=== PATIENT | female | born 1970 | race African-American/Black ===

== ENCOUNTER 2021-07-01 22:14 | Inpatient (IN) | payer MEDICAID ==
[~2021-07-01] VITALS: Ht 160 cm; Wt 105.5 kg
[2021-07-01 23:36] LABS: Basophils # (auto) 0.1 10 ^3/uL (0-0.2); Hemoglobin 10.5 g/dL (12.2-16.2); Nucleated Red Blood Cells % 0.1 %
[2021-07-01 23:37] LABS: Basophils % (auto) 0.8 % (0.0-2.0); Eosinophils # (auto) 0.4 10 ^3/uL (0-0.8); Eosinophils % (auto) 2.9 % (0.0-7.0); Hematocrit 33.1 % (36.0-46.0); Lymphocytes # (auto) 2.7 10 ^3/uL (0.4-5.4); Lymphocytes % (auto) 18.7 % (10.0-50.0); Mean Corpuscular Hemoglobin 25.9 pg (28.0-32.0); Mean Corpuscular Hgb Conc. 31.8 g/dL (32.0-36.0); Mean Corpuscular Volume 81.5 fL (80.0-100.0); Monocytes % (auto) 6.7 % (0.0-12.0); Neutrophils # (auto) 10.2 10 ^3/uL (1.6-8.6); Neutrophils % (auto) 70.9 % (37.0-80.0); Red Blood Cells 4.06 10^6/uL (4.0-5.20); White Blood Cell 14.3 10^3/uL (4.4-10.8)
[2021-07-01 23:54] LABS: INR 1.06 (0.9-1.15); Partial Thromboplastin Time 27.3 sec (23.6-33.0)
[2021-07-02 00:06] LABS: Albumin 2.4 g/dL (3.4-5.0); BUN/Creatinine Ratio 8.1; Calcium 9.2 mg/dL (8.5-10.1)
[2021-07-02 00:09] LABS: Bilirubin, Total 0.1 mg/dL (0.2-1.0); Total Protein 9.6 g/dL (6.4-8.2)
[2021-07-02 00:29] LABS: Urine Bacteria FEW /hpf (None Seen); Urine Blood TRACE /uL (Negative); Urine Mucus FEW (None Seen); Urine Specific Gravity 1.034 (1.001-1.035); Urine WBC 14 /hpf (0 - 5)
[2021-07-02] MEDS ORDERED: ONDANSETRON HCL 4 MG/2 ML VIAL IV PRN ×3 (04:00→16:30)
[2021-07-02] MEDS ORDERED: MORPHINE SULFATE 4 MG/ML SYR/VIAL IV PRN ×2 (04:00→14:30)
[2021-07-02] MEDS ORDERED: SODIUM CHLORIDE 0.9% 1,000 ML IV SCH (04:00)
[2021-07-02] MEDS ORDERED: CLINDAMYCIN 600MG IV 50 ML IV SCH (06:00)
[2021-07-02] MEDS ORDERED: SUCCINYLCHOLINE CHLORIDE 20 MG/ML 10ML VIAL IV ONE (13:53)
[2021-07-02] MEDS ORDERED: MEPERIDINE HCL (50 MG/ML) 1 ML VIAL ONE (13:54)
[2021-07-02] MEDS ORDERED: MIDAZOLAM HCL 2MG/2ML 2ml VIAL (1mg/ml) ONE (13:54)
[2021-07-02] MEDS ORDERED: fentaNYL CITRATE 100 MCG/2 ML VL ONE ×3 (13:54→15:22)
[2021-07-02] MEDS ORDERED: DexAMETHasone SOD PHOS 10MG/1ML VIAL INJ ONE (13:56)
[2021-07-02] MEDS ORDERED: VANCOMYCIN HCL 1000 MG VL ONE (14:01)
[2021-07-02] MEDS: VANCOMYCIN HCL 1000 MG VL ONE ×4 (14:04→16:15)
[2021-07-02] MEDS ORDERED: TOBRAMYCIN INJ 80 MG in D5W 5% 100 ML IV ONE (14:15)
[2021-07-02] MEDS ORDERED: PROPOFOL 10 MG/ML 20 ML IV ONE (14:17)
[2021-07-02] MEDS: TOBRAMYCIN SULFATE 40 MG/ML 2ML VIAL IV ONE ×2 (14:30→16:15)
[2021-07-02] MEDS ORDERED: MIDAZOLAM HCL 2MG/2ML 2ml VIAL (1mg/ml) IV PRN (14:30)
[2021-07-02] MEDS ORDERED: HYDROmorphone HCL 2 MG/ML VL IV PRN ×2 (14:30→16:30)
[2021-07-02] MEDS ORDERED: hydrALAZINE HCL 20 MG/ML VL IV PRN (14:30)
[2021-07-02] MEDS ORDERED: ePHEDrine SULFATE 50 MG/ML AMP IV PRN (14:30)
[2021-07-02] MEDS ORDERED: LABETALOL HCL 5 MG/ML 4ML SYRINGE IV PRN (14:30)
[2021-07-02] MEDS ORDERED: HYDROmorphone HCL 2 MG/ML VL ONE (14:51)
[2021-07-02] MEDS ORDERED: NALOXONE HCL 0.4 MG/ML VIAL ONE (15:29)
[2021-07-02] MEDS ORDERED: VANCOMYCIN PER PHARMACY 0 MG IV SCH (16:30)
[2021-07-02 17:00] VITALS: BP 140/72
[2021-07-02] MEDS: VANCOMYCIN 1GM/250ML 250 ML IV SCH (18:33)
[2021-07-02] MEDS: LACTATED RINGER'S 1,000 ML IV SCH (18:33)
[2021-07-02] MEDS: SODIUM CHLOR 0.9% PF (SALINE LOCK) 10ML VIAL/SYR IV SCH (21:33)
[2021-07-02] MEDS: DOXYCYCLINE 100 MG TAB/CAP PO SCH (21:33)
[2021-07-02 22:00] VITALS: BP 138/80
[2021-07-03] MEDS: LACTATED RINGER'S 1,000 ML IV SCH (02:08)
[2021-07-03 05:00] VITALS: BP 141/79
[2021-07-03 06:28] LABS: Basophils # (auto) 0.1 10 ^3/uL (0-0.2); Eosinophils # (auto) 0.1 10 ^3/uL (0-0.8); Eosinophils % (auto) 0.7 % (0.0-7.0); Monocytes # (auto) 0.5 10 ^3/uL (0-1.3)
[2021-07-03 06:31] LABS: Basophils % (auto) 0.4 % (0.0-2.0); Hematocrit 25.1 % (36.0-46.0); Lymphocytes % (auto) 6.4 % (10.0-50.0); Mean Corpuscular Hemoglobin 25.8 pg (28.0-32.0); Mean Corpuscular Volume 80.7 fL (80.0-100.0); Monocytes % (auto) 3.2 % (0.0-12.0); Neutrophils % (auto) 89.3 % (37.0-80.0); Red Blood Cells 3.11 10^6/uL (4.0-5.20); Red Cell Distribution Width 15.9 % (11.8-14.3); White Blood Cell 15.7 10^3/uL (4.4-10.8)
[2021-07-03] MEDS: SODIUM CHLOR 0.9% PF (SALINE LOCK) 10ML VIAL/SYR IV SCH (06:40)
[2021-07-03] MEDS: VANCOMYCIN 1GM/250ML 250 ML IV SCH ×2 (06:40→17:48)
[2021-07-03 06:55] LABS: Potassium 4.6 mmol/L (3.5-5.1)
[2021-07-03] MEDS ORDERED: HYDR25TA4 PO (07:07)
[2021-07-03] MEDS ORDERED: BENA20TA14 PO (07:07)
[2021-07-03 07:12] LABS: BUN/Creatinine Ratio 12.8; Bilirubin, Total 0.2 mg/dL (0.2-1.0); Calcium 9.1 mg/dL (8.5-10.1); Total Protein 8.3 g/dL (6.4-8.2)
[2021-07-03 09:00] VITALS: BP 118/69
[2021-07-03] MEDS ORDERED: ENOXAPARIN SOD 40 MG/0.4 ML SYRINGE SC SCH (10:00)
[2021-07-03] MEDS: DOXYCYCLINE 100 MG TAB/CAP PO SCH (10:02)
[2021-07-03 13:00] VITALS: BP 122/71
[2021-07-03] MEDS ORDERED: LIDOCAINE 1% (LOCAL ANESTH.) PF 5ml SDV ID ONE (15:15)
[2021-07-03] MEDS ORDERED: levoFLOXacin 500MG 100 ML IV ONE (15:30)
[2021-07-03] MEDS ORDERED: SULF400T11 PO (15:33)
[2021-07-03] MEDS ORDERED: NALO4SPR2 (15:49)
[2021-07-03] MEDS ORDERED: HYDR-4798 PO (15:49)
[2021-07-03 17:00] VITALS: BP 105/68
[2021-07-03 18:18] VITALS: BP 105/68
[2021-07-03] MEDS ORDERED: SODIUM CHLOR 0.9% PF (SALINE LOCK) 10ML VIAL/SYR IV SCH (22:00)
[2021-07-19] MEDS ORDERED: BENA10TA9 PO (14:15)
== END 2021-07-03 19:15 | disposition home health service (06) | DRG 326 ==
LOC: ER 22:14 → OVERFLOW 07-02 03:49 → CENTRAL 07-02 17:10
PROVIDERS: ADMIT Nurse Practitioner; ATTEND Hospitalist
PROC: 0SUW09Z Supplement Left Knee Joint, Tibial Surface with Liner, Open Approach (ICD-10-PCS; 2021-07-02)
PROC: 3E0U029 Introduction of Other Anti-infective into Joints, Open Approach (ICD-10-PCS; 2021-07-02)
PROC: 0SBD0ZZ Excision of Left Knee Joint, Open Approach (ICD-10-PCS; 2021-07-02)
PROC: 0SPD09Z Removal of Liner from Left Knee Joint, Open Approach (ICD-10-PCS; principal; 2021-07-02 14:20)
PROC: 02HV33Z Insertion of Infusion Device into Superior Vena Cava, Percutaneous Approach (ICD-10-PCS; 2021-07-03)
DX: M25.462 Effusion, left knee (principal); E44.0 Moderate protein-calorie malnutrition; L02.416 Cutaneous abscess of left lower limb; E66.01 Morbid (severe) obesity due to excess calories; D72.829 Elevated white blood cell count, unspecified; Z20.822 Contact with and (suspected) exposure to COVID-19; Z96.653 Presence of artificial knee joint, bilateral; Z68.41 Body mass index [BMI] 40.0-44.9, adult; Z88.0 Allergy status to penicillin; I10 Essential (primary) hypertension
CPT/HCPCS: 36415; 36569; 71045; 73700; 80053; 81001; 84702; 85025; 85610; 85730; 87040; 87070; 87075; 87205; 87426; 96365; 96375; G0378; J0330; J1100; J1956; J2250; J2405; J2704; J3490

== ENCOUNTER 2021-07-18 13:15 | Inpatient (IN) | payer MEDICAID ==
[~2021-07-18] VITALS: Ht 160 cm; Wt 101.7 kg
[~2021-07-18 13:15] MED LIST: BENA20TA14 PO; HYDR-4798 PO; HYDR25TA4 PO; NALO4SPR2; SULF400T11 PO
[2021-07-18 13:52] LABS: Basophils # (auto) 0.1 10 ^3/uL (0-0.2); Eosinophils # (auto) 0.2 10 ^3/uL (0-0.8); Monocytes # (auto) 0.7 10 ^3/uL (0-1.3); Neutrophils # (auto) 7.5 10 ^3/uL (1.6-8.6); Nucleated Red Blood Cells % 0.1 %
[2021-07-18 13:53] LABS: Basophils % (auto) 1.1 % (0.0-2.0); Eosinophils % (auto) 2.1 % (0.0-7.0); Hematocrit 31.7 % (36.0-46.0); Hemoglobin 9.9 g/dL (12.2-16.2); Lymphocytes # (auto) 1.4 10 ^3/uL (0.4-5.4); Lymphocytes % (auto) 14.5 % (10.0-50.0); Mean Corpuscular Hemoglobin 25.9 pg (28.0-32.0); Mean Corpuscular Hgb Conc. 31.2 g/dL (32.0-36.0); Mean Corpuscular Volume 83.1 fL (80.0-100.0); Monocytes % (auto) 6.8 % (0.0-12.0); Neutrophils % (auto) 75.5 % (37.0-80.0); Red Blood Cells 3.82 10^6/uL (4.0-5.20); Red Cell Distribution Width 20.1 % (11.8-14.3); White Blood Cell 9.9 10^3/uL (4.4-10.8)
[2021-07-18 14:07] LABS: INR 1.02 (0.9-1.15)
[2021-07-18 14:41] LABS: Urine WBC None Seen /hpf (0 - 5)
[2021-07-18 15:07] LABS: Urine Bacteria NONE SEEN /hpf (None Seen); Urine Blood Negative /uL (Negative); Urine Hyaline Cast MANY /lpf (0 - 2); Urine Mucus FEW (None Seen); Urine Specific Gravity 1.032 (1.001-1.035)
[2021-07-18 15:32] LABS: Alanine Aminotransferase 30 U/L (13-56); Alkaline Phosphatase 74 U/L (45-117); Anion Gap 11 (5-15); Aspartate Aminotransferase 23 U/L (15-37); BUN/Creatinine Ratio 5.6; Bilirubin, Total 0.1 mg/dL (0.2-1.0); Blood Urea Nitrogen 6 mg/dL (7-18); Calcium 8.9 mg/dL (8.5-10.1); Carbon Dioxide 22 mmol/L (21-32); Chloride 108 mmol/L (98-107); GFR African American 70 mL/min; GFR Non-African American 58 mL/min; Glucose 111 mg/dL (74-106); Potassium 3.6 mmol/L (3.5-5.1); Sodium 141 mmol/L (136-145)
[2021-07-18 15:33] LABS: Albumin 2.9 g/dL (3.4-5.0); Total Protein 9.1 g/dL (6.4-8.2)
[2021-07-18] MEDS ORDERED: VANCOMYCIN PER PHARMACY 0 MG IV SCH (18:30)
[2021-07-18] MEDS ORDERED: NITROGLYCERIN 0.4 MG SL TAB SL PRN (18:30)
[2021-07-18] MEDS ORDERED: MORPHINE SULFATE INJECTION 2 MG/ML SYRG IV PRN (18:30)
[2021-07-18] MEDS ORDERED: LABETALOL HCL 5 MG/ML 4ML SYRINGE IV PRN (18:30)
[2021-07-18] MEDS: PANTOPRAZOLE 40 MG/10 ML VIAL INJ IV SCH (18:56)
[2021-07-18] MEDS: ONDANSETRON HCL 4 MG/2 ML VIAL IV PRN (18:58)
[2021-07-18] MEDS: MORPHINE SULFATE INJECTION 2 MG/ML SYRG IV PRN (18:58)
[2021-07-18] MEDS ORDERED: VANCOMYCIN 1GM/250ML 250 ML IV SCH (20:00)
[2021-07-18] MEDS ORDERED: LORazepam 2MG/ML-1ML VIAL IV PRN (22:00)
[2021-07-19] MEDS ORDERED: diphenhdrAMINE HCL 50 MG/1 ML VL IV PRN (00:30)
[2021-07-19 04:34] LABS: Basophils # (auto) 0.1 10 ^3/uL (0-0.2); Basophils % (auto) 1.2 % (0.0-2.0); Eosinophils # (auto) 0.4 10 ^3/uL (0-0.8); Lymphocytes # (auto) 1.9 10 ^3/uL (0.4-5.4); Lymphocytes % (auto) 18.6 % (10.0-50.0); Monocytes # (auto) 0.9 10 ^3/uL (0-1.3); Neutrophils % (auto) 67.4 % (37.0-80.0); White Blood Cell 10.4 10^3/uL (4.4-10.8)
[2021-07-19 04:37] LABS: Eosinophils % (auto) 4.3 % (0.0-7.0); Hematocrit 29.1 % (36.0-46.0); Hemoglobin 9.1 g/dL (12.2-16.2); Mean Corpuscular Hgb Conc. 31.3 g/dL (32.0-36.0); Mean Corpuscular Volume 82.9 fL (80.0-100.0); Monocytes % (auto) 8.5 % (0.0-12.0); Red Blood Cells 3.51 10^6/uL (4.0-5.20); Red Cell Distribution Width 19.6 % (11.8-14.3)
[2021-07-19 04:42] LABS: INR 0.99 (0.9-1.15); Partial Thromboplastin Time 25.8 sec (23.6-33.0)
[2021-07-19 05:08] LABS: Albumin 2.8 g/dL (3.4-5.0); BUN/Creatinine Ratio 10.5; Bilirubin, Total 0.4 mg/dL (0.2-1.0); Calcium 8.8 mg/dL (8.5-10.1)
[2021-07-19] MEDS ORDERED: MIDAZOLAM HCL 2MG/2ML 2ml VIAL (1mg/ml) ONE (07:08)
[2021-07-19] MEDS ORDERED: fentaNYL CITRATE 100 MCG/2 ML VL ONE (07:08)
[2021-07-19] MEDS ORDERED: PROPOFOL 10 MG/ML 20 ML IV ONE (07:09)
[2021-07-19] MEDS ORDERED: CLINDAMYCIN 900MG IV 50 ML IV ONE (07:11)
[2021-07-19] MEDS ORDERED: VANCOMYCIN HCL 1000 MG VL ONE (07:30)
[2021-07-19] MEDS ORDERED: ONDANSETRON HCL 4 MG/2 ML VIAL ONE (07:47)
[2021-07-19] MEDS ORDERED: HYDROmorphone HCL 2 MG/ML VL ONE (08:26)
[2021-07-19] MEDS: HYDROmorphone HCL 2 MG/ML VL IV PRN ×3 (08:28→10:40)
[2021-07-19] MEDS ORDERED: OXYCODONE W/ ACETAMINOPHEN 5/325MG TABLET PO PRN (08:30)
[2021-07-19] MEDS ORDERED: NITROGLYCERIN 0.4 MG SL TAB SL PRN (08:30)
[2021-07-19] MEDS ORDERED: LACTATED RINGER'S 1,000 ML IV SCH (08:30)
[2021-07-19] MEDS ORDERED: METOCLOPRAMIDE HCL 5MG/ml INJ 2ml VIAL IV PRN (08:30)
[2021-07-19] MEDS ORDERED: HYDROmorphone HCL 2 MG/ML VL IV PRN ×2 (08:30→17:00)
[2021-07-19] MEDS ORDERED: MORPHINE SULFATE INJECTION 2 MG/ML SYRG IV PRN (08:30)
[2021-07-19] MEDS ORDERED: VANCOMYCIN PER PHARMACY 0 MG IV SCH (08:30)
[2021-07-19] MEDS: PANTOPRAZOLE 40 MG/10 ML VIAL INJ IV SCH (10:01)
[2021-07-19] MEDS: DOXYCYCLINE 100MG/250ML 250 ML IV SCH ×2 (10:01→19:57)
[2021-07-19] MEDS: SODIUM CHLOR 0.9% PF (SALINE LOCK) 10ML VIAL/SYR IV SCH ×2 (14:01→22:03)
[2021-07-19] MEDS ORDERED: BENA10TA15 PO (14:15)
[2021-07-19] MEDS ORDERED: RIFA300C3 PO (14:15)
[2021-07-19] MEDS ORDERED: LINE1TAB6 PO (14:15)
[2021-07-19] MEDS: MORPHINE SULFATE INJECTION 2 MG/ML SYRG IV PRN (14:33)
[2021-07-19] MEDS: LINEZOLID 600MG/300ML 300 ML IV SCH ×2 (14:33→21:57)
[2021-07-19] MEDS: OXYCODONE W/ ACETAMINOPHEN 5/325MG TABLET PO PRN (16:17)
[2021-07-19 16:33] VITALS: BP 122/66
[2021-07-19] MEDS ORDERED: KETOROLAC TROMETH 30 MG/ML 1ML VIAL IV PRN (17:00)
[2021-07-19] MEDS ORDERED: KETOROLAC TROMETH 30 MG/ML 1ML VIAL IV ONE (17:00)
[2021-07-19 22:00] VITALS: BP 123/48
[2021-07-19] MEDS ORDERED: PATIENTS OWN MEDICATION (zyvox 600 MG) IV SCH (22:00)
[2021-07-20 05:00] VITALS: BP 124/72
[2021-07-20] MEDS: SODIUM CHLOR 0.9% PF (SALINE LOCK) 10ML VIAL/SYR IV SCH ×3 (05:35→22:00)
[2021-07-20] MEDS ORDERED: traMADol HCL 50 MG TAB PO PRN (06:45)
[2021-07-20] MEDS ORDERED: CYCLOBENZAPRINE HCL 10 MG TAB PO PRN (06:45)
[2021-07-20 07:35] VITALS: BP 131/62
[2021-07-20 09:00] VITALS: BP 131/62
[2021-07-20] MEDS: PANTOPRAZOLE 40 MG/10 ML VIAL INJ IV SCH (09:06)
[2021-07-20] MEDS: DOXYCYCLINE 100MG/250ML 250 ML IV SCH ×2 (09:06→19:55)
[2021-07-20] MEDS: GABAPENTIN 100 MG CAP PO SCH ×2 (09:07→22:19)
[2021-07-20] MEDS: OXYCODONE W/ ACETAMINOPHEN 5/325MG TABLET PO PRN ×2 (09:07→18:14)
[2021-07-20] MEDS: CITALOPRAM HYDROBR 20 MG TAB PO SCH (09:07)
[2021-07-20] MEDS: LINEZOLID 600MG/300ML 300 ML IV SCH ×2 (11:27→22:19)
[2021-07-20 13:00] VITALS: BP 130/61
[2021-07-20 17:00] VITALS: BP 116/58
[2021-07-20] MEDS: ONDANSETRON HCL 4 MG/2 ML VIAL IV PRN (18:20)
[2021-07-20 22:00] VITALS: BP 146/91
[2021-07-21 05:00] VITALS: BP 108/54
[2021-07-21] MEDS: SODIUM CHLOR 0.9% PF (SALINE LOCK) 10ML VIAL/SYR IV SCH ×4 (05:21→22:01)
[2021-07-21] MEDS: DOXYCYCLINE 100MG/250ML 250 ML IV SCH ×2 (07:45→20:22)
[2021-07-21 09:00] VITALS: BP 120/79
[2021-07-21] MEDS: PANTOPRAZOLE 40 MG/10 ML VIAL INJ IV SCH (11:05)
[2021-07-21] MEDS: GABAPENTIN 100 MG CAP PO SCH ×2 (11:05→22:01)
[2021-07-21] MEDS: CITALOPRAM HYDROBR 20 MG TAB PO SCH (11:05)
[2021-07-21] MEDS: LINEZOLID 600MG/300ML 300 ML IV SCH ×2 (11:06→23:54)
[2021-07-21 15:32] VITALS: BP 149/79
[2021-07-21 17:00] VITALS: BP 119/72
[2021-07-21] MEDS ORDERED: LIDOCAINE 1% (LOCAL ANESTH.) PF 5ml SDV ID ONE (19:00)
[2021-07-21] MEDS ORDERED: MICAFUNGIN SODIUM 100 MG in SODIUM CHL 0.9% 100 ML IV ONE (20:00)
[2021-07-21] MEDS: diphenhdrAMINE HCL 50 MG/1 ML VL IV PRN (20:30)
[2021-07-21 22:15] VITALS: BP 138/82
[2021-07-22 05:16] VITALS: BP 105/87
[2021-07-22 08:40] VITALS: BP 122/77
[2021-07-22] MEDS: diphenhdrAMINE HCL 50 MG/1 ML VL IV PRN (11:56)
[2021-07-22] MEDS: OXYCODONE W/ ACETAMINOPHEN 5/325MG TABLET PO PRN (11:56)
[2021-07-22] MEDS: LINEZOLID 600MG/300ML 300 ML IV SCH (12:04)
[2021-07-22 13:00] VITALS: BP 152/89
[2021-07-22] MEDS: DOXYCYCLINE 100MG/250ML 250 ML IV SCH (13:53)
[2021-07-22] MEDS: CITALOPRAM HYDROBR 20 MG TAB PO SCH (13:54)
[2021-07-22] MEDS: GABAPENTIN 100 MG CAP PO SCH (13:54)
[2021-07-22] MEDS: SODIUM CHLOR 0.9% PF (SALINE LOCK) 10ML VIAL/SYR IV SCH ×2 (13:54→13:55)
[2021-07-22] MEDS: PANTOPRAZOLE 40 MG/10 ML VIAL INJ IV SCH (13:54)
[2021-07-22 17:00] VITALS: BP 135/80
[2021-07-22 18:38] VITALS: BP 135/80
== END 2021-07-22 20:10 | disposition home health service (06) | DRG 317 ==
LOC: ER 13:16 → OVERFLOW 18:30 → CENTRAL 07-19 02:43
PROVIDERS: ADMIT Family Medicine; ATTEND Internal Medicine
PROC: 0JDP0ZZ Extraction of Left Lower Leg Subcutaneous Tissue and Fascia, Open Approach (ICD-10-PCS; 2021-07-19)
PROC: 0J9P0ZZ Drainage of Left Lower Leg Subcutaneous Tissue and Fascia, Open Approach (ICD-10-PCS; principal; 2021-07-19 07:16)
PROC: 02PAX3Z Removal of Infusion Device from Heart, External Approach (ICD-10-PCS; 2021-07-22)
PROC: 05HY33Z Insertion of Infusion Device into Upper Vein, Percutaneous Approach (ICD-10-PCS; 2021-07-22)
DX: M25.462 Effusion, left knee (principal); E44.0 Moderate protein-calorie malnutrition; T80.218A Other infection due to central venous catheter, initial encounter; M71.062 Abscess of bursa, left knee; L02.416 Cutaneous abscess of left lower limb; I10 Essential (primary) hypertension; Z96.653 Presence of artificial knee joint, bilateral; Y83.8 Other surgical procedures as the cause of abnormal reaction of the patient, or of later complication, without mention of misadventure at the time of the procedure; Z82.49 Family history of ischemic heart disease and other diseases of the circulatory system; Z83.3 Family history of diabetes mellitus; Z80.0 Family history of malignant neoplasm of digestive organs; Z86.14 Personal history of Methicillin resistant Staphylococcus aureus infection; Z88.0 Allergy status to penicillin; Z68.39 Body mass index [BMI] 39.0-39.9, adult; Y92.89 Other specified places as the place of occurrence of the external cause
CPT/HCPCS: 36415; 36569; 71045; 73700; 80053; 80202; 81001; 84443; 84702; 85025; 85610; 85730; 86850; 86900; 86901; 87070; 87075; 87081; 87205; 93005; 96365; 96375; 96376; 97110; C9113; G0378; J1885; J2248; J2250; J2405; J2704; J3490

== ENCOUNTER 2022-02-04 15:14 | Inpatient (IN) | payer MEDICAID ==
[~2022-02-04] VITALS: Ht 160 cm; Wt 103.0 kg
[~2022-02-04 15:14] MED LIST changes: +BENA10TA15 PO; -BENA20TA14 PO; +RIFA300C3 PO; -SULF400T11 PO
[2022-02-04] MEDS ORDERED: ENOXAPARIN SOD 100 MG/1 ML SYRINGE SC ONE (16:15)
[2022-02-04] MEDS ORDERED: SODIUM CHLORIDE 0.9% 1,000 ML IV ONE (16:15)
[2022-02-04 17:10] LABS: Hematocrit 31.9 % (36.0-46.0); Neutrophils # (auto) 3.8 10 ^3/uL (1.6-8.6); Nucleated Red Blood Cells % 0.1 %
[2022-02-04 17:11] LABS: Urine Bacteria NONE SEEN /hpf (None Seen); Urine Blood Negative /uL (Negative); Urine WBC 1 /hpf (0 - 5)
[2022-02-04 17:12] LABS: Basophils # (auto) 0 10 ^3/uL (0-0.2); Basophils % (auto) 0.4 % (0.0-2.0); Eosinophils # (auto) 0.6 10 ^3/uL (0-0.8); Eosinophils % (auto) 7.7 % (0.0-7.0); Hemoglobin 10.1 g/dL (12.2-16.2); Lymphocytes # (auto) 2.7 10 ^3/uL (0.4-5.4); Lymphocytes % (auto) 34.9 % (10.0-50.0); Mean Corpuscular Hemoglobin 24.3 pg (28.0-32.0); Mean Corpuscular Hgb Conc. 31.7 g/dL (32.0-36.0); Mean Corpuscular Volume 76.6 fL (80.0-100.0); Monocytes # (auto) 0.6 10 ^3/uL (0-1.3); Monocytes % (auto) 8.2 % (0.0-12.0); Neutrophils % (auto) 48.8 % (37.0-80.0); Red Blood Cells 4.16 10^6/uL (4.0-5.20); White Blood Cell 7.8 10^3/uL (4.4-10.8)
[2022-02-04 17:13] LABS: Urine Specific Gravity > 1.055 (1.001-1.035)
[2022-02-04 17:19] LABS: Albumin 3.1 g/dL (3.4-5.0); Calcium 8.9 mg/dL (8.5-10.1); Potassium 4.1 mmol/L (3.5-5.1)
[2022-02-04 17:24] LABS: BUN/Creatinine Ratio 7.3; Bilirubin, Total 0.2 mg/dL (0.2-1.0); Total Protein 8.6 g/dL (6.4-8.2)
[2022-02-04] MEDS ORDERED: ONDANSETRON HCL 4 MG/2 ML VIAL IV PRN (18:30)
[2022-02-04] MEDS ORDERED: cloNIDine HCL 0.1 MG TAB PO PRN (18:30)
[2022-02-04] MEDS ORDERED: MORPHINE SULFATE INJECTION 2 MG/ML SYRG IV PRN (18:30)
[2022-02-04] MEDS ORDERED: NITROGLYCERIN 0.4 MG SL TAB SL PRN (18:30)
[2022-02-04] MEDS ORDERED: HYDROcodone-ACET 10/325MG TAB PO PRN (18:30)
[2022-02-04 18:46] LABS: INR 1.05 (0.9-1.15); Partial Thromboplastin Time 27.7 sec (23.6-33.0)
[2022-02-04] MEDS: HYDROcodone-ACET 10/325MG TAB PO PRN (20:55)
[2022-02-04] MEDS: APIXABAN 5 MG TAB PO SCH (21:53)
[2022-02-04] MEDS: FAMOTIDINE 20 MG TAB PO SCH (21:53)
[2022-02-04 22:00] VITALS: BP 147/73
[2022-02-04 23:06] VITALS: BP 147/73
[2022-02-05] MEDS ORDERED: LINE1TAB6 PO (03:07)
[2022-02-05] MEDS ORDERED: FLUC200T50 PO (03:07)
[2022-02-05] MEDS ORDERED: HYDR-4798 PO (03:08)
[2022-02-05] MEDS ORDERED: ASPI325T4 PO (03:08)
[2022-02-05 05:00] VITALS: BP 132/74
[2022-02-05 06:02] LABS: Basophils # (auto) 0.1 10 ^3/uL (0-0.2); Basophils % (auto) 1.3 % (0.0-2.0); Eosinophils # (auto) 0.7 10 ^3/uL (0-0.8); Eosinophils % (auto) 10.1 % (0.0-7.0); Hematocrit 27.5 % (36.0-46.0); INR 1.62 (0.9-1.15); Lymphocytes # (auto) 2.5 10 ^3/uL (0.4-5.4); Lymphocytes % (auto) 34.1 % (10.0-50.0); Mean Corpuscular Hgb Conc. 32.5 g/dL (32.0-36.0); Mean Corpuscular Volume 76.8 fL (80.0-100.0); Monocytes # (auto) 0.8 10 ^3/uL (0-1.3); Monocytes % (auto) 10.6 % (0.0-12.0); Neutrophils # (auto) 3.2 10 ^3/uL (1.6-8.6); Neutrophils % (auto) 43.9 % (37.0-80.0); Nucleated Red Blood Cells % 0.2 %; Partial Thromboplastin Time 58.1 sec (23.6-33.0); Red Blood Cells 3.58 10^6/uL (4.0-5.20); Red Cell Distribution Width 20.8 % (11.8-14.3); White Blood Cell 7.2 10^3/uL (4.4-10.8)
[2022-02-05 06:04] LABS: Potassium 4.1 mmol/L (3.5-5.1)
[2022-02-05 06:15] LABS: BUN/Creatinine Ratio 9.7; Calcium 8.8 mg/dL (8.5-10.1)
[2022-02-05] MEDS: HYDROcodone-ACET 10/325MG TAB PO PRN (06:36)
[2022-02-05 09:00] VITALS: BP 126/66
[2022-02-05] MEDS: APIXABAN 5 MG TAB PO SCH (09:18)
[2022-02-05] MEDS: FAMOTIDINE 20 MG TAB PO SCH (09:19)
[2022-02-05] MEDS ORDERED: LINEZOLID 600MG TABLET PO SCH (14:00)
[2022-02-05] MEDS ORDERED: APIX5TAB PO (14:08)
[2022-02-05] MEDS ORDERED: FLUCONAZOLE 100 MG TAB PO SCH (14:30)
== END 2022-02-05 17:36 | disposition home or self-care (01) | DRG 134 ==
LOC: ER 15:14 → TELE 18:29 → TELE-WESTW 21:39
PROVIDERS: ADMIT Hospitalist; ATTEND Hospitalist
DX: I26.99 Other pulmonary embolism without acute cor pulmonale (principal); D64.9 Anemia, unspecified; Z96.659 Presence of unspecified artificial knee joint; Z20.822 Contact with and (suspected) exposure to COVID-19; Z98.51 Tubal ligation status
CPT/HCPCS: 36415; 80048; 80053; 81001; 83735; 84443; 84484; 85025; 85610; 85730; 87081; 93005; 93970; 96360; 96372; G0378